=== PATIENT | male | born 1950 | race Caucasian/White ===

== ENCOUNTER 2016-12-26 08:30 | Emergency (ER) | payer BC ==
--- NOTE | 2016-12-26 09:03 | UC ---
Lower Extremity/Ankle HPI - HPI Summary HPI Summary: 66 yo male with right foot pain twisted it heard snap reinjured it yesterday ? remote MT fx - History of Current Complaint Chief Complaint: UCLowerExtremity Stated Complaint: RIGHT FOOT PAIN Time Seen by Provider: 12/26/16 08:56 Hx Obtained From: Patient Onset/Duration: Sudden Onset Severity Initially: Moderate Severity Currently: Moderate Pain Intensity: 4 Pain Scale Used: 0-10 Numeric Aggravating Factor(s): Standing, Ambulation Alleviating Factor(s): Rest, Elevation, Ice Able to Bear Weight: Yes - Allergies/Home Medications Allergies/Adverse Reactions: Allergies Allergy/AdvReac Type Severity Reaction Status Date / Time Erythromycin Allergy Stomach Verified 12/26/16 08:48 Cramps allergies Allergy Congestion Uncoded 12/26/16 08:48 tilactin arthritis med Allergy Rash Uncoded 12/26/16 08:48 Home Medications: Home Medications Amlodipine Besylate [Norvasc 10 mg tab] 10 mg PO DAILY 12/26/16 [History Confirmed 12/26/16] Chlorthalidone TAB* [Hygroton TAB*] 12.5 mg PO DAILY 12/26/16 [History Confirmed 12/26/16] Mometasone NASAL (NF) [Nasonex (NF)] 2 spr NA DAILY 12/26/16 [History Confirmed 12/26/16] PMH/Surg Hx/FS Hx/Imm Hx Endocrine History: Dyslipidemia Cardiovascular History: Cardiac Disease, Hypertension Neurological History: CVA - Surgical History Surgical History: Yes Surgery Procedure, Year, and Place: right knee, cardiac stent, - Family History Known Family History: Positive: Cardiac Disease, Hypertension, Diabetes - Social History Alcohol Use: Occasionally Substance Use Type: None Smoking Status (MU): Former Smoker Review of Systems Constitutional: Negative Skin: Negative Eyes: Negative ENT: Negative Respiratory: Negative Cardiovascular: Negative Gastrointestinal: Negative Genitourinary: Negative Motor: Negative Neurovascular: Negative Musculoskeletal: Arthralgia Neurological: Negative Psychological: Negative All Other Systems Reviewed And Are Negative: Yes Physical Exam Triage Information Reviewed: Yes Appearance: Well-Appearing, No Pain Distress, Well-Nourished Vital Signs: Initial Vital Signs Temp 98.2 F 12/26/16 08:35 Pulse 79 12/26/16 08:35 Resp 20 12/26/16 08:35 BP 113/54 12/26/16 08:35 Pulse Ox 99 12/26/16 08:35 Vital Signs Reviewed: Yes Eyes: Positive: Conjunctiva Clear ENT: Positive: Hearing grossly normal. Negative: Nasal congestion, Nasal drainage, Trismus, Muffled/hoarse voice Neck: Positive: Supple, Nontender, No Lymphadenopathy Respiratory: Positive: Lungs clear, Normal breath sounds, No respiratory distress Cardiovascular: Positive: RRR, No Murmur Musculoskeletal: Positive: Other: - see image Skin Exam: Normal Diagnostics - Radiology No standard instances Xray Interpretation: No Acute Changes Radiology Interpretation Completed By: Radiologist Lower Extremity Course/Dx - Differential Dx/Diagnosis Provider Diagnoses: right foot sprain Discharge - Discharge Plan Condition: Stable Disposition: HOME Prescriptions: Naproxen Sodium [Naproxen Sodium 500 MG TAB] 500 mg PO BID PRN #30 tab PRN Reason: Pain Patient Education Materials: Foot Sprain (ED) Referrals: Colton Rothman MD [Medical Doctor] - 1 Week (if not better) Additional Instructions: elevate iced twice daily CAM boot Images Feet (Multiple View): 1 - tender
[2016-12-26 09:05] VITALS: BP 113/54
--- NOTE | 2016-12-26 09:22 | RAD ---
INDICATION: Pain at the base of the fifth metatarsal after injury 1 week earlier COMPARISON: None. TECHNIQUE: 3 views of the right foot were obtained. FINDINGS: At the base of the fifth metatarsal there is a well-corticated focus of bone measuring approximately 5 mm more consistent with a benign bony ossicle than an avulsion fracture. Degenerative changes include enthesophyte formation at the origin the plantar fascia and insertion point of the Achilles tendon on the calcaneal tubercle. The visualized bones are otherwise appropriately corticated and aligned. IMPRESSION: CHRONIC AND DEGENERATIVE CHANGES OF THE RIGHT FOOT DESCRIBED ABOVE WITHOUT RADIOGRAPHICALLY APPARENT FRACTURE OR DISLOCATION. If the patient's symptoms persist, follow-up imaging is recommended.
== END 2016-12-26 09:37 | disposition home or self-care (01) ==
LOC: UCCORT 08:30
DX: S93.601A Unspecified sprain of right foot, initial encounter (principal); X50.1XXA Overexertion from prolonged static or awkward postures, initial encounter; Y93.9 Activity, unspecified; Y92.9 Unspecified place or not applicable; E78.5 Hyperlipidemia, unspecified; I11.9 Hypertensive heart disease without heart failure; Z95.5 Presence of coronary angioplasty implant and graft; Z88.1 Allergy status to other antibiotic agents; Z87.891 Personal history of nicotine dependence
CPT/HCPCS: 99212; G0463

== ENCOUNTER 2018-10-30 13:12 | Emergency (ER) | payer BC, MEDICARE ==
[2018-10-30 13:53] LABS: ABS Basophils 0.1 10^3/ul (0-0.2); ABS Eosinophils 0.1 10^3/ul (0-0.6); ABS Lymphocytes 1.8 10^3/ul (1.0-4.8); ABS Monocytes 0.4 10^3/ul (0-0.8); ABS Neutrophils 3.2 10^3/ul (1.5-7.7); Eosinophil % 2.2 %; Hematocrit 42 % (42-52); Hemoglobin 14.2 g/dL (14.0-18.0); Lymphocyte % 32.8 %; Mean Corpuscular HGB Conc 34 g/dL (31-36); Mean Corpuscular Hemoglobin 32 pg (27-31); Mean Corpuscular Volume 95 fL (80-94); Mean Platelet Volume 9.7 fL (7.4-10.4); Platelet Count 150 10^3/uL (150-450); Red Blood Count 4.39 10^6 /uL (4.18-5.48); Red Cell Distribution Width 14 % (10.5-15); White Blood Count 5.6 10^3/uL (3.5-10.8)
[2018-10-30] MEDS ORDERED: Ondansetron INJ* 2 MG/ML VIAL IV ONE (13:54)
[2018-10-30] MEDS ORDERED: NS 0.9% 1000 ML** 1,000 ML IV ONE (13:54)
[2018-10-30] MEDS ORDERED: Diazepam TAB(*) 5 MG PO ONE (13:55)
--- NOTE | 2018-10-30 13:58 | ED ---
Dizziness - HPI Summary HPI Summary: Pt is a 68 y/o M presenting to the ED with a chief complaint of dizziness first onset about two months ago, but worse this morning. He reports dizziness that feels like vertigo with associated pressure in his head. He has hx of vertigo and a spontaneous brain bleed in 2002 that he has not had complications with. Rapid movements make the dizziness worse, and nothing makes it better. He denies CP, SOB, fever, chills, and N/V. His head discomfort is currently rated at a 3/10. - History Of Current Complaint Chief Complaint: EDDizziness Stated Complaint: DIZZY PER PT Time Seen by Provider: 10/30/18 13:22 Hx Obtained From: Patient Onset/Duration: Still Present, Gradually Timing: Weeks Severity Initially: Moderate Severity Currently: Moderate Character: Dizzy Aggravating Factor(s): Change In Head Position Alleviating Factor(s): Nothing Associated Signs And Symptoms: Negative: Nausea, Vomiting, Chest Pain, SOB, Fever, Chills - Allergies/Home Medications Allergies/Adverse Reactions: Allergies Allergy/AdvReac Type Severity Reaction Status Date / Time erythromycin base Allergy Stomach Verified 10/30/18 13:18 Cramps allergies Allergy Congestion Uncoded 10/30/18 13:18 tilactin arthritis med Allergy Rash Uncoded 10/30/18 13:18 Home Medications: Home Medications Azelastine HCl [Azelastine Hydrochloride] 0.1 % BOTH NARES BID PRN 10/30/18 [ History Confirmed 10/30/18] Cholecalciferol (Vitamin D3) [Vitamin D3] 1,000 unit PO DAILY 10/30/18 [History Confirmed 10/30/18] Diazepam TAB(*) [Valium TAB(*)] 5 mg PO BID PRN 10/30/18 [History Confirmed 03/12] Mometasone NASAL (NF) [Nasonex (NF)] 2 spray BOTH NARES DAILY 10/30/18 [History Confirmed 10/30/18] Multivit-Min/FA/Lycopen/Lutein [Centrum Silver Men Tablet] 1 tab PO DAILY [History Confirmed 10/30/18] Nitroglycerin TAB 0.4 MG* 0.4 mg SL Q5M PRN 10/30/18 [History Confirmed 10/30/18 ] Selenium (NF) 50 mcg PO DAILY 10/30/18 [History Confirmed 10/30/18] Vitamin E CAP* 400 unit PO DAILY 10/30/18 [History Confirmed 10/30/18] PMH/Surg Hx/FS Hx/Imm Hx Previously Healthy: Yes Cardiovascular History: Reports: Hx Hypertension Neurological History: Reports: Other Neuro Impairments/Disorders - brain bleed, vertigo - Surgical History Surgery Procedure, Year, and Place: right knee, cardiac stent, Infectious Disease History: No Infectious Disease History: Denies: Traveled Outside the [place] in Last 30 Days - Family History Known Family History: Positive: Cardiac Disease, Hypertension, Diabetes - Social History Alcohol Use: Occasionally Hx Substance Use: No Substance Use Type: Reports: None Hx Tobacco Use: Yes Smoking Status (MU): Former Smoker Review of Systems Negative: Fever, Chills Negative: Chest Pain Negative: Shortness Of Breath Negative: Vomiting, Nausea Neurological: Other - dizziness Positive: Headache All Other Systems Reviewed And Are Negative: Yes Physical Exam - Summary Physical Exam Summary: GENERAL: Patient is a well-developed and nourished male who is lying comfortable in the stretcher. Patient is not in any acute respiratory distress. HEAD AND FACE: Normocephalic EYES: PERRLA, EOMI x 2. EARS: Hearing grossly intact. MOUTH: Oropharynx within normal limits. NECK: Supple, trachea is midline, no adenopathy, no JVD, no carotid bruit. CHEST: Symmetric, no tenderness at palpation LUNGS: Clear to auscultation bilaterally. No wheezing or crackles. CVS: Regular rate and rhythm, S1 and S2 present, no murmurs or gallops appreciated. ABDOMEN: Soft, non-tender. Bowel sounds are normal. No abnormal abdominal pulsations. EXTREMITIES: Full ROM in all major joints, no edema, no cyanosis or clubbing. NEURO: Alert and oriented x 3. No acute neurological deficits. Speech is normal and follows commands. Cranial nerves II-XII grossly intact, no dysmetria finger to nose, nml heel to shelton. There is some horizontal nystagmus present. SKIN: Dry and warm Triage Information Reviewed: Yes Vital Signs On Initial Exam: Initial Vitals Temp Pulse Resp BP Pulse Ox 98.2 F 97 16 167/81 98 10/30/18 13:14 10/30/18 13:14 10/30/18 13:14 10/30/18 13:14 10/30/18 13:14 Vital Signs Reviewed: Yes - [place] Coma Scale Best Eye Response: 4 - Spontaneous Best Motor Response: 6 - Obeys Commands Best Verbal Response: 5 - Oriented Coma Scale Total: 15 Diagnostics - Vital Signs Vital Signs Temp Pulse Resp BP Pulse Ox 10/30/18 13:14 98.2 F 97 16 167/81 98 - Laboratory Lab Results: Lab Results 10/30/18 Range/Units 13:43 WBC 5.6 (3.5-10.8) 10^3/uL RBC 4.39 (4.18-5.48) 10^6 /uL Hgb 14.2 (14.0-18.0) g/dL Hct 42 (42-52) % MCV 95 H (80-94) fL MCH 32 H (27-31) pg MCHC 34 (31-36) g/dL RDW 14 (10.5-15) % Plt Count 150 (150-450) 10^3/uL MPV 9.7 (7.4-10.4) fL Neut % (Auto) 56.2 % Lymph % (Auto) 32.8 % [place] % (Auto) 7.9 % Eos % (Auto) 2.2 % Baso % (Auto) 0.9 % Absolute Neuts (auto) 3.2 (1.5-7.7) 10^3/ul Absolute Lymphs (auto) 1.8 (1.0-4.8) 10^3/ul Absolute Monos (auto) 0.4 (0-0.8) 10^3/ul Absolute Eos (auto) 0.1 (0-0.6) 10^3/ul Absolute Basos (auto) 0.1 (0-0.2) 10^3/ul Absolute Nucleated RBC 0.0 10^3/ul Nucleated RBC % 0.0 Result Diagrams: 10/30/18 13:43 10/30/18 13:43 Lab Statement: Any lab studies that have been ordered have been reviewed, and results considered in the medical decision making process. - Radiology CXR Radiology Interpretation Completed By: Radiologist Summary of Radiographic Findings: No active cardiopulmonary disease is noted. ED physician has reviewed this report. Brain MRI Radiology Interpretation Completed By: Radiologist Summary of Radiographic Findings: THERE ARE SCATTERED PERIVENTRICULAR AND SUBCORTICAL WHITE MATTER SUBCENTIMETER FLUID INTENSITY FOCI WHICH IS MOST OFTEN SECONDARY TO CHRONIC MICROVASCULAR DISEASE. LESS LIKELY ETIOLOGIES INCLUDE METASTASES, ADEM OR MULTIPLE SCLEROSIS. IF CLINICALLY WARRANTED SUPERIOR CHARACTERIZATION COULD BE MADE WITH CONTRAST-ENHANCED T1-WEIGHTED IMAGING OF THE BRAIN FOR COMPARISON. ED physician has reviewed this report. - CT Brain CT CT Interpretation Completed By: Radiologist Summary of CT Findings: No acute intracranial pathology. ED physician has reviewed this report. - EKG 1328 Cardiac Rate: NL - 95bpm EKG Rhythm: Sinus Rhythm ST Segment: Normal Ectopy: None Summary of EKG Findings: EKG at 1328 shows NSR at 95bpm with L axis deviation. Re-Evaluation - Re-Evaluation 1st re-eval Re-Evaluation Time: 15:41 Change: Unchanged Comment: The pt states he is still very dizzy even after taking the Valium. 2nd re-eval Re-Evaluation Time: 17:55 Change: Improved Comment: Pt reports feeling better. Dizzy Course/Dx - Course Course Of Treatment: Pt is a 68 y/o M presenting to the ED with a chief complaint of dizziness first onset about two months ago, but worse this morning. He reports dizziness worse with movement of his head, with associated headache described as pressure, currently rated at a 3/10. He denies CP, SOB, fever, chills, and N/V. He has notable hx of vertigo as well as a brain bleed in 2002. EKG at 1328 shows NSR at 95bpm with L axis deviation. The pt's physical exam is normal other than some slight horizontal nystagmus. CXR shows no active cardiopulmonary disease. The pt states as of 1541 he is still very dizzy even after taking the Valium. I spoke with radiology at 1613 who stated they will be able to take him in for an MRI of his brain. I discussed the results with the pt who is agreeable with this plan. Brain MRI shows: THERE ARE SCATTERED PERIVENTRICULAR AND SUBCORTICAL WHITE MATTER SUBCENTIMETER FLUID INTENSITY FOCI WHICH IS MOST OFTEN SECONDARY TO CHRONIC MICROVASCULAR DISEASE. LESS LIKELY ETIOLOGIES INCLUDE METASTASES, ADEM OR MULTIPLE SCLEROSIS. IF CLINICALLY WARRANTED SUPERIOR CHARACTERIZATION COULD BE MADE WITH CONTRAST- ENHANCED T1-WEIGHTED IMAGING OF THE BRAIN FOR COMPARISON. The pt reports feeling better as of 1754. I spoke with Dr. Montanez t 175 who stated that since the pt is feeling better, he can follow up with his primary care doctor, and that the pt can choose whether or not he does the MRI with contrast. I discussed results with patient, and he reports feeling better. He is hemodynamically stable and safe for discharge. Strict return precautions given and he will otherwise follow up with his PCP. - Diagnoses Provider Diagnoses: Dizziness Discharge - Sign-Out/Discharge Documenting (check all that apply): Patient Departure Patient Received Moderate/Deep Sedation with Procedure: No - Discharge Plan Condition: Stable Disposition: HOME Prescriptions: Diazepam TAB(*) [Valium TAB(*)] 5 mg PO TID PRN #12 tab MDD 3 PRN Reason: Vertigo Referrals: Ant Markham MD [Primary Care Provider] - Additional Instructions: Please follow up with your primary care provider in the next 1-3 days. Return to the emergency department with any new or worsening symptoms. - Billing Disposition and Condition Condition: STABLE Disposition: Home - Attestation Statements Document Initiated by Duranibe: Yes Documenting Scribe: Lamar Frank Provider For Whom Caitie is Documenting (Include Credential): Parul Hyatt MD. Scribe Attestation: Lamar Epstein, scribed for Parul Hyatt MD. on 10/30/18 at 2000. Scribe Documentation Reviewed: Yes Provider Attestation: The documentation as recorded by the Lamar manzanares accurately reflects the service I personally performed and the decisions made by me, Sia Hyatt MD. Status of Scribe Document: Viewed Consult Consult: 1613 - I spoke with radiology who confirmed that they will be able to do an MRI for the patient today. 1757 - I spoke with Dr. Montanez who stated that since the pt is feeling better, he can follow up with his primary care doctor, and that the pt can choose whether or not he does the MRI with contrast.
[2018-10-30 14:04] LABS: INR 1.03 (0.82-1.09)
[2018-10-30 14:05] LABS: Activated Partial Thrombo Time 29.8 seconds (26.0-36.3)
[2018-10-30 14:22] LABS: Albumin 4.2 g/dL (3.2-5.2); Albumin/Globulin Ratio 1.5 (1-3); Calcium 9.6 mg/dL (8.6-10.3); EGFR African American 79.4 (>60); EGFR Non-African American 65.6 (>60); Globulin 2.8 g/dL (2-4); Magnesium 1.8 mg/dL (1.9-2.7); Potassium 4.3 mmol/L (3.5-5.0); Total Bilirubin 0.6 mg/dL (0.2-1.0)
[2018-10-30] MEDS ORDERED: Lorazepam PYXIS KEY PRN (16:13)
[2018-10-30] MEDS ORDERED: LORazepam INJ* 2 MG/ML 1 ML VIAL IV PUSH ONE (16:13)
[2018-10-30] MEDS ORDERED: Lorazepam PYXIS KEY ONE (16:17)
[2018-10-30 18:25] VITALS: BP 139/82
== END 2018-10-30 18:25 | disposition home or self-care (01) ==
LOC: ED 13:12
DX: I10 Essential (primary) hypertension (principal); R42 Dizziness and giddiness; R93.0 Abnormal findings on diagnostic imaging of skull and head, not elsewhere classified; R94.31 Abnormal electrocardiogram [ECG] [EKG]; Z88.3 Allergy status to other anti-infective agents; Z88.8 Allergy status to other drugs, medicaments and biological substances; Z79.899 Other long term (current) drug therapy; Z87.891 Personal history of nicotine dependence
CPT/HCPCS: 36415; 70450; 70551; 71045; 80053; 83605; 83735; 83880; 84484; 85025; 85610; 85730; 93005; 96361; 96374; 96375; 99283; A9270-GY; J2060; J2405

== ENCOUNTER 2023-07-11 10:38 | Inpatient (IN) ==
[~2023-07-11 10:38] MED LIST: Buffered Lidocaine 1% SYRIN 1 ml INTRADERM ONE; Famotidine IV 10 MG/ML 2 ml VIAL (20 mg) IV ONE; Lactated Ringers 1000 ml BAG 1,000 ML IV SCH
[2023-07-11] MEDS ORDERED: Tranexamic Acid 1 GM/100ML BAG 2,000 MG/200 ML BAG IV ONE (11:13)
[2023-07-11] MEDS ORDERED: Famotidine IV 10 MG/ML 2 ml VIAL (20 mg) ONE (11:13)
[2023-07-11] MEDS ORDERED: ceFAZolin 2 GM in NS PREMIX 2 GM/100 ML BAG IVPB ONE (11:13)
[2023-07-11 11:28] LABS: Rapid COVID-19 Molecular Undetected (Undetected)
[2023-07-11] MEDS ORDERED: Midazolam 2 mg/2 ml VIAL 1 mg/ml 2 ml VIAL (2 mg) ONE (12:03)
[2023-07-11] MEDS ORDERED: fentaNYL 100 mcg/2 ml 50 MCG/ML VIAL ONE (12:03)
[2023-07-11] MEDS ORDERED: ROPIVACAINE 5 MG/ML 30 ML BTL (0.5%) ONE ×2 (12:03→13:08)
[2023-07-11] MEDS ORDERED: Lidocaine 2% PF 5 ML VIAL ONE (13:02)
[2023-07-11] MEDS ORDERED: Phenylephrine IV 10 MG/ML 1 ml VIAL ONE (13:02)
[2023-07-11] MEDS ORDERED: Bupivacaine-MPF SPINAL 7.5 MG/ML - 2ML AMP ONE (13:42)
[2023-07-11] MEDS ORDERED: ceFAZolin VIAL VIAL ONE (13:56)
[2023-07-11] MEDS ORDERED: Dexamethasone IV 4 MG/ML VIAL 1 ml VIAL ONE (14:15)
[2023-07-11] MEDS ORDERED: Ondansetron 4 mg VIAL 2 MG/ML 2 ml VIAL ONE (14:15)
[2023-07-11] MEDS ORDERED: Propofol 10 MG/ML 20 ML BTL ONE (15:36)
[2023-07-11] MEDS ORDERED: Magnesium Hydroxide LIQ 30 ML UDC PO PRN (15:38)
[2023-07-11] MEDS ORDERED: Lactulose 30 ml UDC PO PRN (15:38)
[2023-07-11] MEDS ORDERED: Ondansetron 4 mg VIAL 2 MG/ML 2 ml VIAL IV PRN ×2 (15:38→16:49)
[2023-07-11] MEDS ORDERED: Ondansetron ODT 4 mg TAB 4 MG TAB PO PRN (15:38)
[2023-07-11] MEDS ORDERED: Naloxone 0.4 mg VIAL 0.4 mg/ml 1 ml VIAL IV PRN ×2 (16:49)
[2023-07-11] MEDS ORDERED: Metoclopramide 5 MG/ML VIAL (10 mg) IV PRN (16:49)
[2023-07-11] MEDS ORDERED: fentaNYL 100 mcg/2 ml 50 MCG/ML VIAL IV PRN (16:49)
[2023-07-11] MEDS: Lactated Ringers 1000 ml BAG 1,000 ML IV SCH (18:25)
[2023-07-11] MEDS: Morphine 2 MG/ML SYRINGE IV PRN ×2 (19:49→23:58)
[2023-07-11] MEDS: Magnesium Hydroxide LIQ 30 ML UDC PO SCH ×2 (19:59→21:33)
[2023-07-11] MEDS: ceFAZolin 1 GM ADVAN 1 GM in NS 0.9% 50 ML 50 ML IVPB SCH (21:42)
[2023-07-12] MEDS: Lactated Ringers 1000 ml BAG 1,000 ML IV SCH (05:01)
[2023-07-12] MEDS: ceFAZolin 1 GM ADVAN 1 GM in NS 0.9% 50 ML 50 ML IVPB SCH ×2 (05:07→13:49)
[2023-07-12 06:08] LABS: Platelet Count 163 10^3/uL (150-450)
[2023-07-12 06:29] LABS: Calcium 8.8 mg/dL (8.6-10.3); Creatinine, Serum 1.03 mg/dL (0.67-1.17); Potassium 3.7 mmol/L (3.5-5.0); eGFR CKD-EPI 77.7 (>60)
[2023-07-12 07:44] LABS: Hematocrit 37.3 % (38-53); Hemoglobin 12.9 g/dL (13.2-16.3); Mean Platelet Volume 10.2 fL (7.5-11.2)
[2023-07-12] MEDS ORDERED: Morphine ER 15 mg TAB ** extended release PO SCH (08:00)
[2023-07-12] MEDS: Magnesium Hydroxide LIQ 30 ML UDC PO SCH (08:34)
[2023-07-12] MEDS ORDERED: Vitamin THERAPEUTIC TAB PO SCH (09:00)
[2023-07-12 12:32] VITALS: BP 141/82
== END 2023-07-12 14:35 | disposition home or self-care (01) | DRG 470 ==
LOC: AA 10:38 → INTOOBSV 10:38 → OBSVTOIN 10:38 → SSU 17:40
PROVIDERS: ADMIT Orthopaedic Surgery Adult Reconstructive Orthopaedic Surgery; ATTEND Orthopaedic Surgery Adult Reconstructive Orthopaedic Surgery